=== PATIENT | male | born 1960 | race Caucasian/White ===

== ENCOUNTER 2025-02-07 07:27 | Outpatient (REF) | payer MEDICARE, OTHER, SELFPAY ==
--- OUTSIDE RECORDS SUMMARY | 2025-02-07 07:38 | XMS_ITS | Encounter Summary ---
Author Organization [facility] Address [address] [place] [address] Care Team Providers Care Broach Trouble Shooter Name Role Phone Koki Anderson MD Primary Care Provider [phone] Reason for Visit * Reason Onset Date Comments requesting order to check his PSA 01/17/2025 lab order faxed 01/17/2025 lab order faxed again 01/17/2025 Encounter Details Date Type Department Care Team (Late st Contact Info) Description 01/17/2025 Telephone [facility] [address] [place] [phone] Telephone Intake, Staff requesting order to check his PSA; lab order faxed; lab order faxed again Social History Tobacco Use Types Packs/Day Years Used Date Smoking Tobacco: Every Day Cigarettes 1 40 Smokeless Tobacco: Former Comments:: Alcohol Use Standard Drinks/Week Comments Yes 41 (1 standard drink = 0.6 oz pu re alcohol) last drink 11/06/23 Sex and Gender Information Value Date Recorded Sex Assigned at Male 12/01/2021 10:00 AM EDT Legal Sex Male 3:27 AM EDT Gender Identity Male 12/01/2021 10:00 AM EDT Sexual Orientation Straight 05/21/2022 8: 36 AM EDT documented as of this encounter Miscellaneous Notes * Telephone Encounter - Zaida Funez - 01/19/2025 4:46 PM EDT Pt called to say that [place] didn't receive it - faxed again to [phone] - transmission ok I also faxed to the other number he gave [phone] - transmission ok * Telephone Encounter - Zaida Funez - 01/19/2025 4:11 PM EDT Pt calling again to ask that his lab order be sent to [facility] - faxed to [phone] - transmission ok * Telephone Encounter - Kaylynn Mao - 01/19/2025 8:58 AM EDT Major calling again * Telephone Encounter - Odalys Ruth - 01/18/2025 3:08 PM EDT Patient called again for lab order for PSA to be faxed * Telephone Encounter - Zaida Funez - 01/18/2025 8:54 AM EDT Pt calling back to see if a lab to test his PSA could be put through to the [facility] in [place]. His brother is having treatment there and he's hoping to have it done while he waits with him. The lab fax is [phone] and he also gave the pt registration fax [phone] * Telephone Encounter - Kaylynn Mao - 01/17/2025 8:36 AM EDT Major is requesting an order for blood test to check his PSA, he would like the order faxed to [facility] , fax is [phone] documented in this encounter Plan of Treatment Not on file documented as of this encounter Visit Diagnoses Not on filedocumented in this encounter Care Teams Broach Trouble Shooter Relationship Specialty Start Date End Date Koki Anderson MD PCP - General 05/28/17 documented as of this encounter
[2025-02-07 09:24] LABS: Prostate Specific Antigen < 0.10 ng/mL (<0.05-4.0)
== END 2025-02-07 07:28 | disposition home or self-care (01) ==
LOC: HO.LAB 07:27
PROVIDERS: PCP Student in an Organized Health Care Education/Training Program; Visit Provider Student in an Organized Health Care Education/Training Program
DX: Z12.5 Encounter for screening for malignant neoplasm of prostate (principal); N42.89 Other specified disorders of prostate; C61 Malignant neoplasm of prostate
CPT/HCPCS: 36415; 84153